=== PATIENT | male | born 1975 | race Caucasian/White ===

== ENCOUNTER 2016-09-09 07:34 | Inpatient (IN) ==
--- NOTE | 2016-09-08 22:22 | Discharge Summary ---
<Marge Farmer - Last Filed: 09/08/16 22:20> Date of Encounter: 09/08/16 - Discharge Diagnosis (1) Status post total knee replacement, left Priority: Primary Status: Acute (2) Arthritis of knee, left Priority: Primary Status: Acute (3) HTN (hypertension) Priority: Secondary Status: Chronic (4) Anxiety Status: Chronic - Discharge Medications Home Medications: Aspirin Enteric Coated [Aspirin EC] 325 mg PO DAILY #21 tablet. 09/08/16 [Rx] OxyCODONE Immed Rel [Roxicodone 5 MG] 5 - 10 mg PO Q6HR PRN #40 tablet 09/08/16 [Rx] Diclofenac Sodium [Voltaren] 75 mg PO BID 09/09/16 [History] Lisinopril [Zestril] 10 mg PO DAILY 09/09/16 [History] Allergies/Adverse Reactions: Allergies fluticasone [From Flonase] Adverse Reaction (Verified 09/09/16 08:29) Nose Bleed Hydromorphone [From Dilaudid] Adverse Reaction (Verified 09/09/16 23:22) Flushing Penicillins Adverse Reaction (Verified 09/09/16 08:26) Difficulty Breathing pseudoephedrine [From Sudafed] Adverse Reaction (Verified 09/09/16 08:29) Vomiting tamsulosin [From Flomax] Adverse Reaction (Verified 09/09/16 08:26) Hypotension Primary care physician: Aziza Lam, - Patient Status Disposition: Home, Self-Care Condition: Good - Discharge Instructions Follow Up With: Aziza Lam MD [Primary Care Provider] - - Hospital Course Hospital course: Mr. Farr is a 41 year old male - Time Spent with Patient Total time spent providing and/or coordinating discharge services: <Praveen Winkler - Last Filed: 09/10/16 06:25> Date of Encounter: 09/10/16 Time of Encounter: 06:25 - Discharge Diagnosis (1) Morbid obesity with BMI of 40.0-44.9, adult Priority: Secondary Status: Chronic (2) Status post total knee replacement, left Priority: Primary Status: Acute (3) Arthritis of knee, left Priority: Primary Status: Chronic (4) HTN (hypertension) Priority: Secondary Status: Chronic Qualifiers: Hypertension type: unspecified Qualified Code(s): I10 - Essential (primary ) hypertension (5) Anxiety Priority: Secondary Status: Chronic Primary care physician: Aziza Lam, - Patient Status Functional capacity at discharge: uses cane/walker Overall status at discharge: patient is progressing back to baseline - Hospital Course Hospital course: Mr. Farr is a 41 year old male Status post left total knee replacement The patient had an uneventful postoperative course. They received antibiotics and physical therapy and were discharged in stable condition. There will follow-up in the office in 2 weeks. - Time Spent with Patient Total time spent providing and/or coordinating discharge services:
--- NOTE | 2016-09-09 07:46 | History & Physical Report ---
Date of Encounter: 09/09/16 Time of Encounter: 07:45 24 Hour HP Update - Instructions Instructions: If the History and Physical is less than 30 days old and was completed prior to A.M. admission and or procedure and has NOT been updated on calendar day of procedure please complete this update prior to performing procedure. - Update Patient reports changes in Medical Condition: No Changes in examination, assessment, or condition: No Changes in Medication: No Preop tests/diagnostics Reviewed: Yes Surgery Remains Indicated: Yes Consent for Planned Operative Procedure(s) Verified: Yes - Pre-Operative Checklist Preoperative Checklist Indicated: No Prophylactic Antibiotic Ordered: Yes Is VTE Prophylaxis Indicated?: Yes
[2016-09-09] MEDS ORDERED: Ringers Solution, Lactated 1,000 ML IVC SCH ×3 (08:15→13:15)
[2016-09-09] MEDS ORDERED: Albuterol 2.5 MG/3 ML NEBULIZER IH ONE ×2 (08:28→09:53)
[2016-09-09] MEDS ORDERED: Albuterol 2.5 MG/3 ML NEBULIZER ONE (08:33)
[2016-09-09] MEDS ORDERED: Clindamycin 900 MG/50 ML 900 MG/50 ML IV.SOLN IVPB ONE (08:45)
[2016-09-09] MEDS ORDERED: Famotidine 20 MG/2 ML VIAL IVP ONE (08:52)
[2016-09-09] MEDS ORDERED: Gabapentin 300 MG CAPSULE PO ONE (08:52)
[2016-09-09] MEDS ORDERED: *HR* Propofol 200 MG/20 ML VIAL IVP ONE ×2 (09:07→09:50)
[2016-09-09] MEDS ORDERED: *HR* Midazolam HCl 2 MG/2 ML VIAL ONE (09:07)
[2016-09-09] MEDS ORDERED: Lidocaine -MPF 4% 5 ML AMPUL ONE (09:07)
[2016-09-09] MEDS ORDERED: *HR* FentaNYL (PF) 100 MCG/2 ML VIAL ONE ×3 (09:07→11:38)
[2016-09-09] MEDS ORDERED: Lidocaine -MPF 2% 2 ML VIAL ONE (09:07)
--- NOTE | 2016-09-09 09:29 | Anesthesia Evaluation PreOp ---
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 09/08/16 [Rx] OxyCODONE Immed Rel [Roxicodone 5 MG] 5 - 10 mg PO Q6HR PRN #40 tablet 09/08/16 [Rx] Diclofenac Sodium [Voltaren] 75 mg PO BID 09/09/16 [History] Lisinopril [Zestril] 10 mg PO DAILY 09/09/16 [History] Allergies fluticasone [From Flonase] Adverse Reaction (Verified 09/09/16 08:29) Nose Bleed Penicillins Adverse Reaction (Verified 09/09/16 08:26) Difficulty Breathing pseudoephedrine [From Sudafed] Adverse Reaction (Verified 09/09/16 08:29) Vomiting tamsulosin [From Flomax] Adverse Reaction (Verified 09/09/16 08:26) Hypotension - Meds/Allergy Pre-op Review Medications Reviewed: Yes Allergies Reviewed: Yes Beta Blockers on Current Med List: No Anesthesia Results - Labs Laboratory Tests 09/06/16 09/06/16 14:14 14:14 Hgb 15.7 Hct 46.1 Plt Count 254 Sodium 136 Potassium 4.0 BUN 13 Creatinine 0.87 Anesthesia Exam O2 Sat Height 1.78 m Height 1.78 m Height 1.78 m Weight 139.253 kg Weight 139.253 kg Weight 139.253 kg O2 Sat by Pulse Oximetry 98 Vital Signs Temp Pulse Resp BP Pulse Ox 98.1 F 103 18 138/101 98 09/09/16 08:02 09/09/16 08:02 09/09/16 08:02 09/09/16 08:02 09/09/16 08:02 Height: 5'10 Weight: 307 lbs NPO (# of Hours): MN Pain Scale: 0 - HEENT Pupil (Motor): Pupils equal, EOMI Mallampati: III Teeth: Normal Oral Opening: Less than or equal to 3 - PLANT AND MAINTENANCE TECHNICIAN LOC: Oriented PLANT AND MAINTENANCE TECHNICIAN Motor: Normal RUE, Normal LUE, Normal RLE, Normal LLE, Normal Face [employer]ANT AND MAINTENANCE TECHNICIAN Sensory: Normal: RUE, LUE, RLE, LLE, Face - Cardiac Rhythm: Regular Murmur: None JVD: No Carotid Bruit: No - Pulmonary Breath Sounds: bilateral Clear Respiratory Effort: Symmetrical Anesthesia Assess/Plan ASA Score: 3 ([place] Tobacco) Modified Farwell Scale for Level of Consciousness: Cooperative, oriented, and tranquil Anesthetic Plan: General, Regional Monitoring Plan: Standard Monitors Recovery Plan: PACU (Discussed GA and RA, agrees to proceed)
[2016-09-09] MEDS ORDERED: ROPIVACAINE HCL/PF 0.5% 30 ML VIAL ONE (09:41)
[2016-09-09] MEDS ORDERED: Bupivacaine/Clonidine Syringe 1 EACH SYRINGE ONE (09:41)
[2016-09-09] MEDS ORDERED: Ondansetron 4 MG/2 ML VIAL IVP ONE (09:53)
[2016-09-09] MEDS ORDERED: Naloxone 0.4 MG/ML INJ IVP PRN ×2 (09:53→13:15)
[2016-09-09] MEDS ORDERED: *HR* Meperidine 25 MG/ML SYRINGE IVP PRN (09:53)
[2016-09-09] MEDS ORDERED: *HR* Labetalol 20 MG/4 ML SYRINGE IVP PRN (09:53)
--- NOTE | 2016-09-09 10:13 | Anesthesia Procedures ---
Date of Encounter: 09/09/16 Time of Encounter: 10:11 Procedures: Anesthesia - Nerve Block Procedure Date: 09/09/16 Time: 10:11 Allergies/Adv Reactions: Allergies fluticasone [From Flonase] Adverse Reaction (Verified 09/09/16 08:29) Nose Bleed Penicillins Adverse Reaction (Verified 09/09/16 08:26) Difficulty Breathing pseudoephedrine [From Sudafed] Adverse Reaction (Verified 09/09/16 08:29) Vomiting tamsulosin [From Flomax] Adverse Reaction (Verified 09/09/16 08:26) Hypotension Pre-op Diagnosis: left knee oa Surgical Procedure: left total knee Checklist: Correct Patient Identifier, Correct procedure, History checked Correct side: Left Blood Thinner: No Monitor Applied: EKG, BP, Pulse Oximetry Supplemental Oxygen via Nasal Cannula (L/min): 2 Sedation: Versed (mg): 2 Sedation: Fentanyl (mcg): 100 Indication: Post Op Analgesia Pre-op Neuro Deficits: No Block Type: Femoral, Other (iPACK) Catheter placed: No Sterile Technique: Yes Ultrasound used: Yes Anatomy identified: Yes Visual spread of Local: Yes Neuro Stimulation: No Blood on Needle Aspiration: No Smooth Injection of Local: Yes Pain with Injection of Local: No Prep: Chlorhexadine Needle: 21 x 100 mm Stimuplex Local: 0.25% Bupivicaine w/Clonidine 20 mcg/cc (20cc iPACK), Ropivacaine (0.2% 30 cc femoral) Volume (cc): 50 Number of Attempts: 1 Complications: None/effective block
[2016-09-09] MEDS ORDERED: Ondansetron 4 MG/2 ML VIAL ONE (10:23)
[2016-09-09] MEDS ORDERED: Dexamethasone 4 MG/ML VIAL ONE (10:23)
--- NOTE | 2016-09-09 11:05 | Orthopedic Operative Note ---
Date of procedure: 09/09/16 Pre-op diagnosis: Left knee arthritis Post-op diagnosis: same Procedure: Procedure: Left Total knee replacement removal of hardware tibial screw. Estimated blood loss: 200 cc Hardware: Metal and polyethylene replacement. Arthrex Femur: 7 Tibia: 8 PS insert: 11 Patella: 40 Exam Under anesthesia: Loss of full extension 10 degrees flexion to 90 degrees hard stop Procedural Notes: Grade 4 arthritic changes medial compartment and patellofemoral joint Operative procedure: The patient was brought to the operating room and placed on the operating room table. After general anesthesia was administered the operative knee was examined. Findings were noted in the exam under anesthesia. The operative extremity was prepped and draped in sterile surgical fashion. The patient received IV antibiotics prior to skin incision. A standard midline incision was made centered over the patella. The incision was made through the skin and subcutaneous tissue. A medial parapatellar tendon approach was performed. Care was taken to preserve tissue along the medial aspect of the patella. And to protect the patella tendon. The deep MCL was released off the medial tibia. The infra patella fat pad was excised. Knee was brought into flexion. Patient noted to have grade 4 arthritic changes medial compartment and patellofemoral joint. The entry hole was made for the intramedullary femoral guide. The guide was seated in 6 degrees of valgus. Anterior cut was made followed by the distal cut. The ACL the PCL the medial and the lateral menisci were excised. The tibia was subluxed forward. The entry hole was made for the intramedullary tibial guide. Guide was seated to resect 2 mm off the more abnormal side. The knee was brought into flexion the distal femur was sized to a 7. The femoral guide was seated, the anterior cut was made followed by the posterior condylar cut, followed by the chamfer cuts. The finishing guide was seated the box cut was made and the lug holes were drilled. The tibia was sized to an 8, the tibial tray was seated and prepared with the large drill followed by the fin cutter. During cementation of the tibia there was a hard restriction secondary to tibial screw and this was removed without incident. Tibial prep was completed without incident. Trial reduction revealed full extension no varus valgus instability with the appropriate 11 PS Lakshmi. The patella was everted and cut was made at the level of the insertion of the quadriceps and patella tendon. The patella was sized to a 40 guide was seated and the lug holes are drilled. Trial reduction revealed excellent patella tracking. All trial components were removed all bony surfaces were irrigated. The tibia was cemented first followed by the femur. The 11 PS Lakshmi was seated and the knee was brought into full extension. The patella was cemented and held in place with the patellar holding clamp. After the cement had hardened, the knee sat for 2 minutes with a Betadine saline solution. The knee was then irrigated out with 2 L of pulse irrigation. The PA closed the knee. The extensor mechanism was closed with #2 FiberWire suture and #2 PDS suture. The subcutaneous tissue was then irrigated and closed deep with #1 PDS suture superficially with 0 PDS suture and skin was closed with skin sarah. The patient was then placed in a sterile dressing and a postoperative brace extubated and transferred to recovery room in stable condition. Anesthesia: ELLA Surgeon: Praveen Winkler Tower Truck Driver: Marge Farmer Condition: stable Disposition: PACU
[2016-09-09] MEDS ORDERED: Ketorolac 30 MG/ML VIAL ONE (11:18)
[2016-09-09] MEDS: *HR* HYDROmorphone (PF) 1 MG/ML SYRINGE IVP PRN ×2 (11:50→12:18)
[2016-09-09 12:04] LABS: Hematocrit 43.3 % (37.5-50.1); Hemoglobin 14.2 g/dL (12.9-16.9)
--- NOTE | 2016-09-09 13:14 | Anesthesia Evaluation Post Op ---
Date of Encounter: 09/09/16 Time of Encounter: 13:00 - Vital Signs Vital Signs: Vital Signs/O2 Sat/Glucose, Most Current Temp Pulse Resp BP Pulse Ox 09/09/16 12:58 98.1 F 78 14 112/87 97 09/09/16 12:42 98.0 F 80 16 111/82 97 09/09/16 12:32 84 18 110/82 94 09/09/16 12:22 74 16 124/87 94 09/09/16 12:12 97.9 F 84 14 123/86 96 09/09/16 12:02 78 10 121/89 97 09/09/16 11:52 88 10 118/83 93 09/09/16 11:42 97.7 F 93 24 133/104 97 09/09/16 09:46 77 16 133/90 96 - Lungs Lungs: Clear Ascult./Percussion - Airway Airway: Non-obstructed - Cardiovascular Regular Rate - Mental Status Mental Status: Alert & Oriented, Answers Appropriately - Pain Pain Scale: 0 - Nausea Vomiting Nausea Vomiting: Not Present - Hydration Hydration: Ice chips - Discharge PostOp Status: Transfer Patient to floor
[2016-09-09] MEDS ORDERED: Ondansetron 4 MG/2 ML VIAL IVP PRN (13:15)
[2016-09-09] MEDS ORDERED: Sennosides 8.6 MG TABLET PO PRN (13:15)
[2016-09-09] MEDS ORDERED: *HR* HYDROmorphone (PF) 1 MG/ML SYRINGE IVP PRN (13:15)
[2016-09-09] MEDS ORDERED: *HR* OxyCODONE Immed Rel 5 MG TABLET PO PRN (13:15)
[2016-09-09] MEDS ORDERED: MOM Conc 10 ML UD.LIQ PO PRN (13:15)
[2016-09-09] MEDS ORDERED: Temazepam 15 MG CAPSULE PO PRN (13:15)
[2016-09-09] MEDS: *HR* OxyCODONE Immed Rel 5 MG TABLET PO PRN (14:17)
[2016-09-09] MEDS: *HR* Enoxaparin 30 MG/0.3 ML SYRINGE SQ SCH (17:14)
[2016-09-09] MEDS: Clindamycin 900 MG/50 ML 900 MG/50 ML IV.SOLN IVPB SCH (17:15)
[2016-09-09] MEDS ORDERED: *HR* Enoxaparin 30 MG/0.3 ML SYRINGE SQ SCH (18:00)
[2016-09-09] MEDS ORDERED: Diclofenac Sodium 75 MG TABLET PO SCH (21:00)
[2016-09-09] MEDS ORDERED: *HR* Morphine 2 MG/ML SYRINGE IVP PRN (22:23)
[2016-09-09] MEDS ORDERED: Albuterol 2.5 MG/3 ML NEBULIZER IH PRN (22:27)
[2016-09-10] MEDS: Clindamycin 900 MG/50 ML 900 MG/50 ML IV.SOLN IVPB SCH (02:28)
[2016-09-10] MEDS: *HR* OxyCODONE Immed Rel 5 MG TABLET PO PRN (04:32)
[2016-09-10] MEDS: *HR* Enoxaparin 30 MG/0.3 ML SYRINGE SQ SCH (05:35)
[2016-09-10 06:01] LABS: Hematocrit 37.6 % (37.5-50.1)
[2016-09-10 06:02] LABS: Hemoglobin 12.4 g/dL (12.9-16.9)
[2016-09-10 06:23] LABS: BUN/Creatinine Ratio 13 (6-26); Blood Urea Nitrogen 13 mg/dL (8-26); Calcium 8.9 mg/dL (8.6-10.8); Carbon Dioxide 28 mEq/L (19-29); Chloride 99 mEq/L (98-109); Glucose 170 mg/dL (70-99); Osmolality,Calculated 284 (280-300); Potassium 4.4 mEq/L (3.5-4.5); Sodium 135 mEq/L (136-145); eGFR For African Americans > 60 (> 60); eGFR For Non-African Americans > 60 (> 60)
--- NOTE | 2016-09-10 06:26 | Orthopedics Progress Note ---
Date of Encounter: 09/10/16 Time of Encounter: 06:26 - Assessment and Plan (1) Morbid obesity with BMI of 40.0-44.9, adult Current Visit: Yes Status: Chronic (2) Status post total knee replacement, left Current Visit: Yes Status: Acute (3) Arthritis of knee, left Current Visit: Yes Status: Chronic (4) HTN (hypertension) Current Visit: Yes Status: Chronic Qualifiers: Hypertension type: unspecified Qualified Code(s): I10 - Essential (primary ) hypertension (5) Anxiety Current Visit: Yes Status: Chronic Subjective Interval history: Patient was seen this morning doing well without complaints. Afebrile vital signs stable. Operative extremity: Neurovascularly intact Dressing clean dry and intact Calves nontender Assessment and plan: Continue with postoperative care Discharged today Objective Vital signs: Vital Signs Temp Pulse Resp BP Pulse Ox 09/10/16 04:28 97.6 F 76 18 130/83 98 09/10/16 00:02 98.2 F 88 17 120/90 96 09/09/16 22:40 18 96 09/09/16 22:06 118/85 09/09/16 19:46 98.8 F 88 18 115/73 98 09/09/16 16:15 97.5 F L 88 15 95/70 96 09/09/16 15:04 97.9 F 79 18 100/71 97 09/09/16 14:12 97.7 F 79 18 108/71 96 09/09/16 13:26 98.1 F 76 16 108/78 09/09/16 12:58 98.1 F 78 14 112/87 97 09/09/16 12:42 98.0 F 80 16 111/82 97 09/09/16 12:32 84 18 110/82 94 09/09/16 12:22 74 16 124/87 94 09/09/16 12:12 97.9 F 84 14 123/86 96 09/09/16 12:02 78 10 121/89 97 09/09/16 11:52 88 10 118/83 93 09/09/16 11:42 97.7 F 93 24 133/104 97 09/09/16 09:46 77 16 133/90 96 09/09/16 08:41 83 136/98 09/09/16 08:02 98.1 F 103 18 138/101 98 Intake and Output 09/09/16 09/09/16 09/10/16 15:59 23:59 07:59 Intake Total 100 / 100 290 / 290 700 / 700 Output Total 200 / 200 750 / 750 875 / 875 Balance -100 / -100 -460 / -460 -175 / -175 Intake: IV Fluids 100 / 100 50 / 50 700 / 700 Lactated Ringers 1,000 ML 650 / 650 @ 75 mls/hr IVC .[id number] RITU Rx#:[id number] Cleocin Premix 900 MG/50 100 / 100 50 / 50 50 / 50 ML 900 mg In 50 ml @ 50 mls/hr IVPB Q8H RITU Rx#: [id number] Oral 0 / 0 240 / 240 Output: Urine 750 / 750 875 / 875 Estimated Blood Loss 200 / 200 Other: Meal Dinner Percent of Meal Consumed 100% # Voids 1 Weight 139.253 kg - Labs CBC & BMP: 09/10/16 04:30 09/10/16 04:30 Labs: Abnormal lab results Hgb 12.4 g/dL (12.9-16.9) L D 09/10/16 04:30 Sodium 135 mEq/L (136-145) L 09/10/16 04:30 Glucose 170 mg/dL (70-99) H 09/10/16 04:30 - VTE Documentation of Mechanical Device: Venous foot pump, device Consult Discharge Plan - Plan Referrals: Aziza Lam MD [Primary Care Provider] -
[2016-09-10 07:19] VITALS: BP 117/83
== END 2016-09-10 10:40 | disposition home or self-care (01) | DRG 470 ==
LOC: SAMDAY 07:34 → 3NENU 12:52
PROVIDERS: ADMIT Orthopaedic Surgery; ATTEND Orthopaedic Surgery